=== PATIENT | female | born 1950 | race Caucasian/White ===

== ENCOUNTER 2018-11-13 06:29 | Inpatient (IN) ==
--- NOTE | 2018-10-18 08:14 | History & Physical Report ---
Date of Service October 18, 2018 date of surgery: 11-13-18 Assessment & Plan (1) Osteoarthritis of left knee: Risks and benefits of procedure discussed in detail today, patient would like to proceed with a Left total knee replacement at [facility] as scheduled. Obtain PATs at [facility]. Will place on ASA 81mg po bid x 1 month post op, f/u 2 weeks post op for routine post-operative care and x-ray, sooner if having any problems. will make arrangements for HHPT at the time of discharge. At this point in time, has failed conservative measures and would like to proceed with surgical intervention. History of Present Illness Chief Complaint: left knee pain Primary Care Provider: NO PCP Ms Paul is a 68 year old female who is here for a follow up of left knee pain, presents for pre-op evaluation prior to a left total knee replacement at [facility] on 11/13/18. She presents with pain, crepitus and instability on the left side. Patient is here today for pre-op visit for left TKA on 11/13/18. The symptoms occur intermittently and are gradually getting worse. Currently the patient states that the symptoms are moderate and described as sharp, sometimes stabbing and burning. She rates her current pain as 5/10 and worst is 8/10. The symptoms are aggravated by daily activities and walking. Patient is taking Meloxicam and has also tried Ibuprofen. Patient had visco injections previously as well without relief. Allergies Allergy/AdvReac Type Severity Reaction Status Date / Time tramadol [From Ultram] Allergy Unknown BODY Verified 10/08/18 11:03 SHAKES, CRYING lisinopril AdvReac Unknown Cough Verified 10/08/18 11:03 Home Medications Home Medications Medication Instructions Recorded Confirmed Type acetaminophen [Tylenol Extra 500 mg PO TID PRN 10/08/18 10/08/18 History Strength] amlodipine [Norvasc] 5 mg PO HS 10/08/18 10/08/18 History celecoxib [Celebrex] 200 mg PO QAM 10/08/18 10/08/18 History Past Med/Surg History Medical History Chronic back pain TREATED WITH PAIN CLINIC IN [place]. Hypertension Nausea and vomiting after administration of anesthetic agent Osteoarthritis Vertigo OCCASIONALLY. NO MEDS. Surgical History History of appendectomy History of bilateral tubal ligation History of carpal tunnel release BILATERAL History of cataract surgery BILATERAL History of cholecystectomy History of colonoscopy History of open reduction and internal fixation (ORIF) procedure LEFT ANKLE History of tonsillectomy S/P DI-BSO S/P arthroscopy of shoulder RIGHT Family History Father Family history of diabetes mellitus Sister Family history of diabetes mellitus Brother Family history of diabetes mellitus Social History Preferred Language: Turkish Communication Ability: Effective Lot Attendant Required: No Beliefs That Will Affect Care: None Current Living Situation: Spouse Other Information That Helps Us Care for You: No Feels Safe at Home: Yes Safety Concerns: Feels Safe At This Time Smoking Status: Never smoker Do You Dip or Chew Tobacco: No Second Hand Exposure: No Tobacco Cessation Education Requested by Patient: No Hx Alcohol Use: No Hx Substance Use: No Review of Systems Review of Systems: All systems reviewed & are unremarkable except as noted in HPI & below Constitutional: no fever, no chills and no sweats Respiratory: no cough and no dyspnea Cardiovascular: no chest pain, no dyspnea and no orthopnea Gastrointestinal: no abdominal pain, no nausea and no vomiting Musculoskeletal: as per Subjective / HPI Physical Exam Physical Exam: Ht: 5ft 3in Wt: 95.3kg BP: 140/82 Pulse: 66 Constitutional: WD/WN, vitals as above no acute distress Respiratory: normal respiratory effort, lungs clear to auscultation no respiratory distress, no labored breathing and does not use accessory muscles Cardiovascular: RRR, no murmur, no edema Gastrointestinal (Abdomen): normal bowel sounds, soft, nontender, no hepatosplenomegaly Musculoskeletal: Left Knee Physical Exam: Tamiko ambulates with a limp, there is no erythema, warmth, +1 effusion. there is no ecchymosis or atrophy noted, her greatest tenderness is anterior and medial compartment. mild crepitation with motion, noy's negative, posterior drawer negative. positive mcmurrays medially, negative anterior drawer, knee stable with valgus/varus stress. no extensor lag. pain with active range of motion, AROM 0/5/115, Passive ROM 0/3/115. No pain with active/passive ROM of ankle. Lower Extremity Strength normal. Lower Extremity Neuro-vascular is normal Results & Data Diagnostic Findings Left Knee X-ray performed 08/16/18 shows advanced DJD to the left knee with complete loss of the joint space medial compartment and patellofemoral joints, showing osteophyte formation, subchondral sclerosis. no acute bony pathology noted.
--- NOTE | 2018-10-18 08:44 | PAT Medication Instructions ---
Medication Instructions Date of Service October 18, 2018 Home Medications acetaminophen [Tylenol Extra Strength] 500 mg PO TID PRN amlodipine [Norvasc] 5 mg PO HS celecoxib [Celebrex] 200 mg PO QAM ASK your surgeon for instructions celecoxib [Celebrex] 200 mg PO QAM Take morning of surgery With a small sip of water, OTHERWISE NOTHING TO EAT OR DRINK AFTER MIDNIGHT: acetaminophen [Tylenol Extra Strength] 500 mg PO TID PRN (if needed, may be taken up to four hours before surgery) Take evening before surgery acetaminophen [Tylenol Extra Strength] 500 mg PO TID PRN (if needed) amlodipine [Norvasc] 5 mg PO HS Other Notes If you have any questions please call us at [phone] or [phone] or [phone] or [phone]
--- NOTE | 2018-10-18 11:55 | Anesthesiology Consultation ---
Date of Service October 18, 2018 Assessment & Plan (1) Encounter for pre-operative examination: PCP clearance (Isak Renteria) 10/24: "Labs, EKG and CXR from [facility] reviewed. Patient optimized for left knee replacement surgery. Chart Review Chart Review: Acceptable Risk for Surgery and Patient seen in Pre Admission Te sting Teaching & Discussion Instructed NPO after midnight before surgery, except medications with 15 cc of water. Medication instructions provided according to the PAT guidelines. History Surgery Operation Date: 11/13/18 10:20 Proposed Procedures p Left Total Knee Arthroplasty - Marcus Christopher DO Height/Weight Height: 5 ft 3 in Weight: 101.7 kg Allergies Allergy/AdvReac Type Severity Reaction Status Date / Time tramadol [From Ultra] Allergy Unknown BODY Verified 10/08/18 11:03 SHAKES, CRYING lisinopril AdvReac Unknown Cough Verified 10/08/18 11:03 Medications Home Medications Medication Instructions Recorded Confirmed Last Taken acetaminophen [Tylenol Extra 500 mg PO TID PRN 10/08/18 10/08/18 Unknown Strength] amlodipine [Norvasc] 5 mg PO HS 10/08/18 10/08/18 Unknown celecoxib [Celebrex] 200 mg PO QAM 10/08/18 10/08/18 Unknown Past Medical History Medical History Chronic back pain TREATED WITH PAIN CLINIC IN [place]. Hypertension Nausea and vomiting after administration of anesthetic agent Osteoarthritis Vertigo OCCASIONALLY. NO MEDS. Exercise / Class Metabolic Activity III < 4 Walking/Shop/Light housework (Denies CP or SOB with stairs but limited activity 2/2 knee pain) Past Family History Family History Father Family history of diabetes mellitus Sister Family history of diabetes mellitus Brother Family history of diabetes mellitus Past Surgical History Surgical History History of appendectomy History of bilateral tubal ligation History of carpal tunnel release BILATERAL History of cataract surgery BILATERAL History of cholecystectomy History of colonoscopy History of open reduction and internal fixation (ORIF) procedure LEFT ANKLE History of tonsillectomy S/P DI-BSO S/P arthroscopy of shoulder RIGHT Past Anesthesia History No Hx of Anesthesia Complications (other PONV) and No Family Hx of Anesthesia Complications History of PONV No Hx of Motion Sickness and History of PONV Social History Smoking Status: Never smoker Do You Dip or Chew Tobacco: No Hx Alcohol Use: No Hx Substance Use: No substance use type: does not use Review of Systems Pt denies any recent chest pain, shortness of breath, palpitations, cough, fever or URI. Physical Exam Vital Signs BP: 153/85 (Pt to follow up with PCP) P: 71bpm SPO2: 96% RA T: 98.3 F R: 18 Constitutional + obese ENMT Mouth: + dentures (full upper, partial lower); no loose teeth (but one cavity on lower L) Thyromental Distance: > or= 3.5 Finger Breadths (4) Mallampati Class: II Neck normal visual inspection; neck extension not limited Respiratory normal respiratory effort Auscultation: lungs clear to auscultation bilaterally Cardiovascular Rate/Rhythm: regular rate and regular rhythm Heart Sounds: no murmur Vessels: no carotid bruit Extremities: no edema Testing Laboratory Results 10/18/18 12:10 10/18/18 12:10 PT 10.8 Seconds (9.0-12.0) 10/18/18 12:10 INR 1.1 (0.9-1.1) 10/18/18 12:10 APTT 27.6 Seconds (21.0-31.0) 10/18/18 12:10 Hemoglobin A1c 6.0 % (4.5-5.6) H 10/18/18 12:10 Urine Color Yellow 10/18/18 12:10 Urine Appearance Clear (Clear) 10/18/18 12:10 Urine pH 5.0 (4.5-7.5) 10/18/18 12:10 Ur Specific [place] 1.024 (1.000-1.030) 10/18/18 12:10 Urine Protein Negative (Negative) 10/18/18 12:10 Urine Glucose (UA) Negative (Negative) 10/18/18 12:10 Urine Ketones Negative (Negative) 10/18/18 12:10 Urine Nitrite Negative (Negative) 10/18/18 12:10 Ur Leukocyte Esterase Negative (Negative) 10/18/18 12:10 Blood Type O Positive 10/18/18 12:10 Antibody Screen NEGATIVE 10/18/18 12:10 Electrocardiogram Date: 10/18/18 Findings: + NSR @ (22) Chest X-Ray Date: 10/18/18 Findings: + NAD
--- NOTE | 2018-10-18 13:06 | XRay Report ---
XR chest Pre-admission PA/Lat CLINICAL HISTORY: Preoperative evaluation. COMPARISON STUDY: No previous studies for comparison. FINDINGS: Lung volumes are normal. Lungs are clear. There is no pneumothorax or pleural effusion. Car diac size is normal. Mediastinal contours are normal. There is no evidence for pulmonary edema. Incid ental note is made of cholecystectomy clips. IMPRESSION: No acute cardiopulmonary findings. Electronically signed by: Yuan Yu M.D. 10/18/2018 1:05 PM
[2018-10-18 13:07] LABS: Albumin Level 3.7 gm/dl (3.4-5.0); BUN Creatinine Ratio 24.2 (10-20); Calcium 9.1 mg/dl (8.5-10.1); Creatinine Clr Calc Pharmacy 86.4 ml/min; Est GFR (African American) 102.2; Est GFR (Non-African American) 88.2; Potassium 4.5 mmol/L (3.5-5.1)
[2018-10-18 13:13] LABS: Basophils # (auto) 0.07 K/uL (0-0.2); Basophils % (auto) 0.9 %; Eosinophils % (auto) 2.6 %; Hematocrit (blood only) 38.1 % (37-47); Hemoglobin 12.1 g/dL (12.0-16.0); Immature Granulocytes # (auto) 0.03 K/uL (0.00-0.02); Immature Granulocytes % (auto) 0.4 %; Lymphocytes # (auto) 1.75 K/uL (1.2-3.4); Mean Corpuscular Hgb Conc 31.8 g/dL (32-36); Mean Corpuscular Volume 95.5 fL (80-100); Monocytes # (auto) 0.45 K/uL (0.11-0.59); Monocytes % (auto) 5.9 %; Neutrophils % (auto) 67.2 %; Platelet Count 292 K/uL (130-400); RDW Coefficient of Variation 14.5 % (11.5-14.5); RDW Standard Deviation 50.4 fL (36.4-46.3); Red Blood Count 3.99 M/uL (4.2-5.4)
[2018-10-18 13:25] LABS: INR 1.1 (0.9-1.1); Partial Thromboplastin Time 27.6 Seconds (21.0-31.0); Prothrombin Time 10.8 Seconds (9.0-12.0)
[2018-10-18 13:31] LABS: Estimated Average Glucose 126 mg/dl
[2018-10-18 13:37] LABS: Appearance Urine Clear (Clear); Bilirubin Urine Negative (Negative); Blood Urine Negative (Negative); Color Urine Yellow; Glucose Urine UA Negative (Negative); Ketones Urine Negative (Negative); Leukocyte Esterase Urine Negative (Negative); Nitrite Urine Negative (Negative); Protein Urine Negative (Negative); Specific Gravity Urine 1.024 (1.000-1.030); Urobilinogen Urine Negative (Negative)
[~2018-11-13 06:29] MED LIST: ACETAMINOPHEN 500 MG TAB PO SCH; CEFAZOLIN 2000MG 2,000 MG/15 ML SYR IV SCH; CeleBREX 200 MG CAP PO SCH; FAMOTIDINE 20 MG TAB PO SCH; GABAPENTIN 300 MG CAP PO SCH; LR 500ML BOLUS, THEN 15ML/HR IV SCH; METOCLOPRAMIDE HCL 10 MG TABLET PO SCH; ROPIVACAINE 0.5% HCL/PF 150 MG, BUPIVACAINE 0.5% MPF 30 ML, EPINEPHrine 30MG/30ML (OR U... INSTIL SCH; TRANEXAMIC ACID 1,000 MG **IV Pre-op IV SCH; dexAMETHasone 4 MG TAB PO SCH
[2018-11-13] MEDS ORDERED: TRANEXAMIC ACID 1,000 MG **IV Intra-op IV SCH (06:30)
[2018-11-13] MEDS ORDERED: ROPIVACAINE 0.5% 5 MG/ML 30 ML VIAL ONE (06:41)
[2018-11-13] MEDS ORDERED: BUPIVACAINE 0.5 % 5 MG/1 ML PF 10ML VIAL ONE (06:41)
[2018-11-13] MEDS ORDERED: EPINEPHrine INJ 1 MG/ML AMP ONE (06:42)
[2018-11-13] MEDS ORDERED: PROPOFOL IV EMULSION 10 MG/ML 20 ML VIAL IV ONE (07:38)
[2018-11-13] MEDS ORDERED: LIDOCAINE HCL 2% 2 ML VIAL/AMP(20MG/ML) INFIL ONE (07:38)
[2018-11-13] MEDS ORDERED: ONDANSETRON INJ 2 MG/ML 2 ML VIAL ONE (07:38)
[2018-11-13] MEDS ORDERED: GLYCOPYRROLATE 0.2 MG/ML VIAL ONE (07:38)
[2018-11-13] MEDS ORDERED: DEXAMETHASONE SOD INJ 4 MG/ML VIAL ONE (07:38)
[2018-11-13] MEDS ORDERED: MIDAZOLAM HCL 1 MG/ML 2ML VIAL ONE (07:39)
[2018-11-13] MEDS ORDERED: KETAMINE HCL INJ 50 MG/ML 10 ML VIAL ONE (07:39)
[2018-11-13] MEDS ORDERED: LABETALOL HCL IV 5 MG/ML 20ML IV ONE (07:44)
--- NOTE | 2018-11-13 08:30 | History & Physical Bridge Note ---
Date of Service November 13, 2018 History & Physical Bridge Note I have examined the patient, reviewed the History & Physical and in the interval since the performance of the History & Physical I have noted the following changes of clinical significance: no changes noted
[2018-11-13] MEDS ORDERED: BACITRACIN INJ 50,000 UNIT VIAL ONE (09:08)
[2018-11-13] MEDS ORDERED: ORTHO JOINT ANESTHETIC ONE (09:08)
[2018-11-13] MEDS ORDERED: fentaNYL citrate 100 MCG/2 ML VIAL IV PRN (09:14)
[2018-11-13] MEDS ORDERED: ONDANSETRON INJ 2 MG/ML 2 ML VIAL IV PRN ×2 (09:14→12:18)
[2018-11-13] MEDS ORDERED: LABETALOL HCL IV 5 MG/ML 20ML IV PRN (09:14)
[2018-11-13] MEDS ORDERED: PHENYLEPHRINE 100MCG/ML 5ML SYR IV PRN (09:14)
[2018-11-13] MEDS ORDERED: ATROPINE SULFATE 0.1 MG/ML 10ML SYR IV PRN (09:14)
[2018-11-13] MEDS ORDERED: ePHEDrine sulfate 50 MG/ML AMP IV PRN (09:14)
--- NOTE | 2018-11-13 10:29 | Operative Report ---
Post Operative Report Pre & Post Diagnosis Operation Date: 11/13/18 09:40 Pre-Op Diagnosis: Left knee osteoarthritis Post-Op Diagnosis: Left knee osteoarthritis Procedure Operation Date: 11/13/18 09:40 Actual Procedures p Left Total Knee Arthroplasty utilizing Gonzalez & Nephew journey to non-block total knee arthroplasty size 5 femur 4 tibia 9 polyethylene 32 oval patella- Tho lacho Christopher DO Surgeon Marcus Christopher DO Corner Trimmer Operator Vinicius SANCHEZ Estimated Blood Loss 5 Findings Consistent with Post-Op Diagnosis Patient presents with severe end-stage chronic hormonal degenerative joint disease left knee bone to bone changes eburnated bone bone loss of the medial compartment with complete eburnated bra bone large marginal osteophyte subchondral cystic changes moderate to large effusion Specimens Bone and Drains Medium bore Hemovac Complications none Disposition Accompanied Patient To Recovery: No Disposition: Recovery Room Indications Patient presents with severe end-stage tricompartmental degenerative joint disease failing attempts at conservative management physical therapy and inflammatory relative rest activity modification corticosteroid injections Visco supplementation she presents for left total knee arthroplasty Description of Procedure After proper prepping and draping of the left lower extremity anterior midline incision was made over the region of the extensor extensor mechanism after meticulous hemostasis was obtained and maintained in subcutaneous tissues a medial parapatellar incision was made The patella was subluxed lateralward the medial lateral gutter were cleaned from any hypertrophic synovitis and scar tissue of the distal femoral block was placed and the distal femoral osteotomy cut was made subsequently the chamfers anterior and posterior osteotomy cuts were made utilizing the 4-in-1 block the tibia was subsequently subluxed anteriorward medial and ateral meniscal remnants were excised in their entirety remnants of the anterior and posterior cruciate ligaments were excised in their entirety excellent exposure of the proximal tibia was obtained the tibial osteotomy guide was placed on the proximal tibial osteotomy cut was made once again the knee was irrigated with copious amounts of sterile saline solution the patella was subsequently everted lateralward thickened scar tissue around the patella was removed the patella was subsequently cut utilizing a freehand technique and was drilled prepared for final preparation and placement of patella socially flexion-extension gaps were checked and the equal and symmetric trials were placed to the appropriate femoral and tibial trials with poly-spacer being placed for equal flexion and extension gaps and full range of motion inclu ding extension to 0 and flexion to 140 the trial components after having been taken to recovery range of motion was subsequently removed meticulous hemostasis was obtained and maintained subsequently a knee block injection of joint cocktail including ropivacaine 0.5% 150 mg. Bupivacaine 0.5% epinephrine 1- 200,030 mL's toradol 30 mg dexamethasone 4 mg ketamine 10 mg clonidine 100 micrograms normal saline solution 30 mg was infiltrated into the soft tissues of the posterior knee medial lateral gutters and periosteal synovium special attention was paid to protect neurovascular structures at all times subsequently trial components having been removed the knee was irrigated with sterile saline solution. debris was removed the proximal tibia was subsequently prepared and was made ready for the placement of the tibial component tibial component was also cemented and tamped into position the femoral component was subsequently placed and cemented in the position the patellar component was subsequently cemented in position because hemostasis once again obtained and maintained wound having been thoroughly irrigated with debridement and debridement lavage was performed as well as a medial parapatellar incision closed with #1 Vicryl in interrupted fashion subcutaneous was closed with #2 Vicryl skin was closed with skin clips. PA-C was necessary for prepping and drapping as well as wound closure of deep fascia Sub cutaneous tissue and skin and was necessary for the case. A sterile compressive dressing was placed patient was taken to recovery in stable condition of report dictated by Ashwin I attest to the content of the Intraoperative Record and any orders documented therein. Any exceptions are noted below. I attest to the content of the Intraoperative Record and any orders documented therein. Any exceptions are noted below.
--- NOTE | 2018-11-13 11:41 | XRay Report ---
TWO VIEWS LEFT KNEE CLINICAL HISTORY: Postoperative examination. FINDINGS: AP and crosstable lateral portable views of the left knee are obtained. A left knee arthrop lasty is in near anatomic alignment. There has been undersurface remodeling of the patella. No acute fracture is seen. There are expected postoperative changes around the knee including a surgical drain , soft tissue edema, and subcutaneous gas. Soft tissue calcifications are seen medial to the proximal tibia. IMPRESSION: 1. Expected postoperative changes status post left knee arthroplasty. No acute fracture is seen. 2. Indeterminate soft tissue calcifications are seen medial to the proximal tibia. Electronically signed by: Demetrius Hudson M.D. 11/13/2018 11:39 AM
--- NOTE | 2018-11-13 11:59 | Anesthesiology Progress Note ---
Date of Service November 13, 2018 Anesthesia Post Procedure Vital Signs Vital Signs: Temp Pulse Pulse Resp BP BP Pulse Ox 11/13/18 11:50 73 18 132/69 92 11/13/18 11:40 67 20 119/62 94 11/13/18 11:30 75 21 126/60 94 11/13/18 11:20 82 16 113/63 94 11/13/18 11:11 37.2 C 82 18 119/57 L 95 11/13/18 07:29 36.6 C 74 20 158/86 H 98 Pain Intensity Left Knee: Pain Intensity: 0 Transfer of Care Handoff Completed per policy Notes Mental Status: alert / awake / arousable and participated in evaluation Patient Amnestic to Procedure: Yes Nausea / Vomiting: adequately controlled Pain: adequately controlled Airway Patency, RR, SpO2: stable & adequate BP & HR: stable & adequate Hydration State: stable & adequate Neuraxial Anesthesia: was administered and sensory block is resolving Anesthetic Complications: no major complications apparent and Pt Satisfied with anesthetic care
[2018-11-13] MEDS ORDERED: BISACODYL 10 MG SUPP PR PRN (12:18)
[2018-11-13] MEDS ORDERED: HYDROmorphone INJ 1 MG/ML SYRINGE IV PRN (12:18)
[2018-11-13] MEDS ORDERED: MAGNESIUM HYDROXIDE SUSP 30 ML UDC PO PRN (12:18)
[2018-11-13] MEDS ORDERED: ALUMINUM/MAGNESIUM SUSP 30 ML UDC PO PRN (12:18)
[2018-11-13] MEDS ORDERED: NALOXONE HCL 0.4 MG/1 ML VIAL/CARP IV PRN (12:18)
[2018-11-13] MEDS ORDERED: METOCLOPRAMIDE HCL INJ 5 MG/ML 2 ML VIAL IV PRN (12:18)
[2018-11-13] MEDS ORDERED: SODIUM CHLORIDE 0.9% 1000ML 1,000 ML IV SCH (13:15)
[2018-11-13] MEDS: ACETAMINOPHEN 500 MG TAB PO SCH ×2 (14:06→20:39)
[2018-11-13] MEDS: KETOROLAC TROMETHAMINE 15 MG/ML VIAL IV SCH ×2 (14:06→20:40)
[2018-11-13] MEDS: CEFAZOLIN 2000MG 2,000 MG/15 ML SYR IV SCH (18:11)
[2018-11-13] MEDS: DOCUSATE SODIUM 100 MG CAP PO SCH (20:39)
[2018-11-13] MEDS: ASPIRIN 81 MG ECTAB PO SCH (20:39)
[2018-11-13] MEDS: SENNA 8.6 MG TAB PO SCH (20:39)
[2018-11-13] MEDS: AMLODIPINE BESYLATE 5 MG TAB PO SCH (20:39)
[2018-11-14] MEDS: CEFAZOLIN 2000MG 2,000 MG/15 ML SYR IV SCH (02:28)
[2018-11-14] MEDS: KETOROLAC TROMETHAMINE 15 MG/ML VIAL IV SCH ×2 (02:29→07:44)
[2018-11-14] MEDS: ACETAMINOPHEN 500 MG TAB PO SCH ×3 (05:57→21:08)
--- NOTE | 2018-11-14 07:17 | Orthopedic Progress Note ---
Date of Service November 14, 2018 Assessment & Plan (1) Status post total left knee replacement: POD #1 s/p Left TKA pt/ot dvt proph with KAE/SCD/ASA plan for d/c home with HHPT when stable labs pending Subjective POD #1 s/p Left TKA Review of Systems Constitutional: no fever, no chills and no sweats Respiratory: no cough and no dyspnea Cardiovascular: no chest pain and no dyspnea Gastrointestinal: no abdominal pain, no nausea and no vomiting Physical Exam Physical Exam: Vital Signs Temp Pulse Pulse Resp BP BP Pulse Ox 11/14/18 07:08 36.6 C 73 16 158/83 H 97 11/14/18 02:53 36.5 C 65 16 151/82 H 93 11/13/18 23:41 36.9 C 68 16 122/77 95 11/13/18 20:31 36.7 C 67 17 134/78 97 11/13/18 15:05 36.6 C 65 18 126/75 94 11/13/18 14:04 36.7 C 76 15 132/75 94 11/13/18 13:29 36.7 C 78 18 133/74 11/13/18 12:34 77 16 125/79 98 11/13/18 12:05 36.7 C 72 15 131/76 96 11/13/18 11:50 73 18 132/69 92 11/13/18 11:40 67 20 119/62 94 11/13/18 11:30 75 21 126/60 94 11/13/18 11:20 82 16 113/63 94 11/13/18 11:11 37.2 C 82 18 119/57 L 95 11/13/18 07:29 36.6 C 74 20 158/86 H 98 Intake and Output 11/13/18 11/14/18 11/14/18 22:59 06:59 14:59 Intake Total 220 / 2040 Output Total 625 / 1525 125 / 1525 Balance -405 / 515 -125 / 515 Intake: Oral 220 / 420 Output: Urine 450 / 1150 Drain Output 175 / 370 125 / 370 Left Knee Hemo vac 175 / 370 125 / 370 Other: # Unmeasured Voi ds 1 Constitutional: WD/WN, vitals as above no acute distress Musculoskeletal: left leg: NVDI, calf SNT, negative susannah sign. DP palpable, able to wiggle toes/ankle movement without difficulty. dressing clean dry and intact. Vital Signs Temp 36.6 C 11/14/18 07:08 Pulse 73 11/14/18 07:08 Resp 16 11/14/18 07:08 BP 158/83 H 11/14/18 07:08 Pulse Ox 97 11/14/18 07:08 Intake & Output 11/13/18 11/14/18 11/14/18 18:59 06:59 18:59 Intake Total 1820 / 2040 220 / 2040 Output Total 1225 / 1525 300 / 1525 Balance 595 / 515 -80 / 515 Weight 101.1 kg Intake: IV 520 / 520 Lr 1,000 ml @ 15 mls/hr IV . 300 / 300 Q24H BEHZAD Rx#:[id number] Cyklokapron 1, 000 mg In Sodium 220 / 220 Chloride 100 m l @ 660 mls/hr IV 0630 BEHZAD Rx#:[id number] IV Perioperative 1100 / 1100 Oral 200 / 420 220 / 420 Output: Urine 1150 / 1150 Estimated Blood Loss 5 / 5 Drain Output 70 / 370 300 / 370 Left Knee Hemo vac 70 / 370 300 / 370 Other: # Unmeasured Voi ds 1 Results & Data Vital Signs (Past 12 Hours) Vital Signs Temp Pulse Resp BP Pulse Ox 11/14/18 02:53 36.5 C 65 16 151/82 H 93 11/13/18 23:41 36.9 C 68 16 122/77 95 11/13/18 20:31 36.7 C 67 17 134/78 97 Diagnostic Findings TWO VIEWS LEFT KNEE CLINICAL HISTORY: Postoperative examination. FINDINGS: AP and crosstable lateral portable views of the left knee are obtained. A left knee arthroplasty is in near anatomic alignment. There has been undersurface remodeling of the patella. No acute fracture is seen. There are expected postoperative changes around the knee including a surgical drain, soft tissue edema, and subcutaneous gas. Soft tissue calcifications are seen medial to the proximal tibia. IMPRESSION: 1. Expected postoperative changes status post left knee arthroplasty. No acute fracture is seen. 2. Indeterminate soft tissue calcifications are seen medial to the proximal tibia.
[2018-11-14] MEDS: OXYCODONE HCL IR 5 MG TAB (IMMEDIATE RELEASE) PO PRN ×3 (07:43→15:42)
[2018-11-14] MEDS: MULTIVITAMIN TAB PO SCH (07:45)
[2018-11-14] MEDS: DOCUSATE SODIUM 100 MG CAP PO SCH ×2 (07:45→20:54)
[2018-11-14] MEDS: ASPIRIN 81 MG ECTAB PO SCH ×2 (07:45→20:53)
[2018-11-14 08:03] LABS: Hemoglobin 9.7 g/dL (12.0-16.0); Mean Corpuscular Hgb Conc 31.3 g/dL (32-36); Mean Corpuscular Volume 94.8 fL (80-100); Platelet Count 293 K/uL (130-400); RDW Coefficient of Variation 14.1 % (11.5-14.5); RDW Standard Deviation 48.7 fL (36.4-46.3); Red Blood Count 3.27 M/uL (4.2-5.4); White Blood Count 12.97 K/uL (4.8-10.8)
[2018-11-14 08:34] LABS: BUN Creatinine Ratio 25.1 (10-20); Calcium 8.9 mg/dl (8.5-10.1); Creatinine Clr Calc Pharmacy 68.3 ml/min; Est GFR (African American) 78.2; Est GFR (Non-African American) 67.5; Potassium 4.3 mmol/L (3.5-5.1)
--- NOTE | 2018-11-14 09:31 | Anesthesiology Progress Note ---
Date of Service November 14, 2018 Anesthesia Post Procedure Vital Signs Vital Signs: Temp Pulse Pulse Resp BP Pulse Ox 11/14/18 07:08 36.6 C 73 16 158/83 H 97 11/14/18 02:53 36.5 C 65 16 151/82 H 93 11/13/18 23:41 36.9 C 68 16 122/77 95 11/13/18 20:31 36.7 C 67 17 134/78 97 11/13/18 15:05 36.6 C 65 18 126/75 94 11/13/18 14:04 36.7 C 76 15 132/75 94 11/13/18 13:29 36.7 C 78 18 133/74 11/13/18 12:34 77 16 125/79 98 11/13/18 12:05 36.7 C 72 15 131/76 96 11/13/18 11:50 73 18 132/69 92 11/13/18 11:40 67 20 119/62 94 11/13/18 11:30 75 21 126/60 94 11/13/18 11:20 82 16 113/63 94 11/13/18 11:11 37.2 C 82 18 119/57 L 95 Pain Intensity Left Knee: Pain Intensity: 0 Notes Mental Status: alert / awake / arousable and participated in evaluation Patient Amnestic to Procedure: Yes Nausea / Vomiting: adequately controlled Pain: adequately controlled Airway Patency, RR, SpO2: stable & adequate BP & HR: stable & adequate Hydration State: stable & adequate Neuraxial Anesthesia: was administered and sensory block resolved Anesthetic Complications: no major complications apparent and Pt Satisfied with anesthetic care
[2018-11-14] MEDS: AMLODIPINE BESYLATE 5 MG TAB PO SCH (20:53)
[2018-11-14] MEDS: CeleBREX 200 MG CAP PO SCH (20:53)
[2018-11-14] MEDS: SENNA 8.6 MG TAB PO SCH (20:54)
[2018-11-15] MEDS: ACETAMINOPHEN 500 MG TAB PO SCH (06:13)
[2018-11-15] MEDS: OXYCODONE HCL IR 5 MG TAB (IMMEDIATE RELEASE) PO PRN (07:34)
[2018-11-15] MEDS: DOCUSATE SODIUM 100 MG CAP PO SCH (07:35)
[2018-11-15] MEDS: ASPIRIN 81 MG ECTAB PO SCH (07:35)
[2018-11-15] MEDS: CeleBREX 200 MG CAP PO SCH (07:35)
[2018-11-15] MEDS: MULTIVITAMIN TAB PO SCH (07:35)
--- NOTE | 2018-11-15 08:52 | Orthopedic Progress Note ---
Date of Service November 15, 2018 Assessment & Plan (1) Status post total left knee replacement: POD #1 s/p Left TKA pt/ot dvt proph with KAE/SCD/ASA plan for d/c home with HHPT when stable Recheck of her blood pressure proved to be 143/80. No further adjustments needed for her medications for her blood pressure. I discussed with her that she should follow-up with her primary care physician in a week to recheck her blood pressure for any adjustments that might need to be done with her amlodipine. We will plan for discharge to home today. Subjective Postop day 2 status post left total knee arthroplasty Patient is currently sitting up in bed eating her breakfast. Awake alert and oriented. No complaints this time. Pain is controlled. He states that she was having pain last night and let it get too far along. He had some Dilaudid which caused her to have vivid dreams and visions etc. and states that she does not want to have Dilaudid ever again. Shortness of breath, chest pain, lightheadedness. Blood pressure was taken and was noted to be 183/97 this morning after she had gotten up to the bathroom and was moving about. Physical Exam Physical Exam: Miguel dressing is clean, dry, intact. Functioning. Calves are soft nontender. Neurovascular intact. Toes are mobile. Results & Data Vital Signs (Past 12 Hours) Vital Signs Temp Pulse Resp BP Pulse Ox 11/15/18 08:00 36.5 C 73 17 183/97 H 96 11/14/18 23:36 36.8 C 68 16 155/80 H 99 11/14/18 20:55 36.5 C 65 16 155/82 H 98
--- NOTE | 2018-11-15 11:09 | Discharge Summary ---
Date of Service date of discharge: November 15, 2018 date of admission: 11/13/18 Admission HPI Per Admitting Provider Ms Paul is a 68 year old female who is here for a follow up of left knee pain, presents for pre-op evaluation prior to a left total knee replacement at [facility] on 11/13/18. She presents with pain, crepitus and instability on the left side. Patient is here today for pre-op visit for left TKA on 11/13/18. The symptoms occur intermittently and are gradually getting worse. Currently the patient states that the symptoms are moderate and described as sharp, sometimes stabbing and burning. She rates her current pain as 5/10 and worst is 8/10. The symptoms are aggravated by daily activities and walking. Patient is taking Meloxicam and has also tried Ibuprofen. Patient had visco injections previously as well without relief. Principal Diagnosis left knee osteoarthritis Discharge Exam Vital Signs Temp Pulse Resp BP BP Pulse Ox 11/15/18 09:40 36.5 C 73 17 183/97 H 143/80 H 96 11/15/18 08:54 143/80 H 11/15/18 08:00 36.5 C 73 17 183/97 H 96 11/14/18 23:36 36.8 C 68 16 155/80 H 99 11/14/18 20:55 36.5 C 65 16 155/82 H 98 11/14/18 19:07 36.5 C 62 16 137/81 94 11/14/18 15:36 36.4 C L 68 16 149/84 H 97 11/14/18 12:00 36.2 C L 62 16 136/85 98 Intake and Output 11/14/18 11/15/18 11/15/18 22:59 06:59 14:59 Output Total 125 / 235 Balance -125 / 225 - Output: Drain Output 125 / 235 Left Knee Hemovac 125 / 235 Other: # Unmeasured Voids 1 1 Weight 101.1 kg Patient Weight 11/16/18 06:59 Weight 101.1 kg Constitutional WD/WN, vitals as above no acute distress Musculoskeletal left knee: NVDI, calf SNT, negative susannah sign. DP palpable, able to wiggle toes/ankle movement without difficulty. ARLET dressing clean dry and intact. expected post-operative bruising noted. Discharge Data Allergies Allergy/AdvReac Type Severity Reaction Status Date / Time tramadol [From Ultram] Allergy Unknown BODY Verified 11/13/18 07:34 SHAKES, CRYING lisinopril AdvReac Unknown Cough Verified 11/13/18 07:34 Consultations 11/13/18 12:18 Consult Case Management - Discharge Planning Routine Procedures Performed Operation Date: 11/13/18 09:40 Actual Procedures p Left Total Knee Arthroplasty(Left) - Marcus Christopher DO Ordered Studies 11/13/18 05:00 US - OR guided needle placemen Routine Hospital Course (1) Status post total left knee replacement: POD #2 s/p Left TKA pt/ot dvt proph with KAE/SCD/ASA plan for d/c home with HHPT when stable Recheck of her blood pressure proved to be 143/80. No further adjustments needed for her medications for her blood pressure. I discussed with her that she should follow-up with her primary care physician in a week to recheck her blood pressure for any adjustments that might need to be done with her amlodipine. We will plan for discharge to home today. Total Time Total Time Spent Total Time Spent (In Minutes): 20 Total Time Includes: Examination of the Patient, Discharge Planning and Medicati on Reconciliation Discharge Plan Discharge Items Patient Disposition: Home - Home Health Services Reason For Visit: LEFT KNEE OSTEOARTHRITIS Discharge Diagnosis: left total knee replacement Discharge Goals: Decrease discomfort, Improve function and Increase independence Activity: Per 'Additional Instructions' section Lifting: Wait until after follow-up appointment Driving/Machine Use Comment: no driving until cleared by your surgeon Weightbearing Comment: WBAT with walker Call non-emergency contact if: your temperature is above 101, your wound has increased redness, your wound has increased drainage and your wound pain has increased Follow-up/Referrals: PCP,NO [Physician] - Addtl Provider Instructions: ACTIVITY RECOMMENDATIONS: SELF CARE INSTRUCTIONS AFTER TOTAL KNEE REPLACEMENT A. You may need to continue a physical therapy program after discharge from the hospital. There are several options available to you. Your doctor will assist you in selecting the best one for you. 1. An out-patient facility 2 to 3 times a week for therapy or home therapy. 2. Continue working on all exercises taught to you in the hospital. Your goals should be to increase bending of your knee to 90 degrees and beyond and to fully straighten your knee. B. You may progress at your own pace from walking with a walker or crutches to a cane; then to no assistive devices. C. Make walking a part of your daily routine. Be up as much as comfortable with rest periods throughout the day. Rest with leg elevation is very important. Use the ice wrap frequently for the first 3-4 weeks. D. There are no restrictions on activities. You may ride in a car, shop, participate in hospital social worker and all social activities. E. Wear the long elastic stockings (KAE hose) 20 hours a day for 2 weeks after surgery. They can be removed several times a day for laundering and for a bath. F. You may shower, no tub baths until cleared by your doctor. SPECIAL CARE INSTRUCTIONS: VERY IMPORTANT TO READ AND REVIEW A. There are a few signs you need to watch for after you are home. Call [facility] if you notice any of the followin. Increased severe knee pain. Some pain is expected especially when you exercise. 2. Increased swelling in your leg or knee; pain or swelling of the calf muscle in either lower leg. 3. Any fluid drainage from the incision. 4. Shortness of breath or chest pain. B. Please call [facility] at if you have any concerns or questions about your operation or recovery. The doctor or his nurse will return your call promptly. C. You must take antibiotics before dental work, bladder, bowel or other surgery. Your doctor will provide you with a permanent care to carry describing this precaution. IMPORTANT: * REMEMBER TO TAKE ASPIRIN, 81 MG, TWICE DAILY FOR 4 WEEKS UNLESS OTHERWISE DIRECTED. THIS IS YOUR BLOOD THINNER. * HIGH RISK PATIENTS MAY BE PRESCRIBED A STRONGER BLOOD THINNER. THIS WILL BE PROVIDED AT DISCHARGE. * CALL IF INCREASED PAIN, REDNESS, DRAINAGE OR FEVER GREATER THAT 101. * WEAR KAE HOSE 20 HOURS PER DAY FOR 2 WEEKS. * ARLET Dressing- This is a large suction dressing covering your incision. This will help pull any excess drainage from the wound and allow your incision to heal properly. You may shower with this if you can keep the unit outside of the shower. If any bleeding or leakage is noted please call your doctor's office. This will remain on your incision for 7 days and then should be removed. This can be done yourself or by the home nursing staff if applicable. The entire unit is disposable once removed. Once removed, keep incision clean and dry. If redness or drainage is noted, please call your surgeon. after ARLET is removed, follow these instructions: DERMABOND Prineo- This is a mesh tape dressing that is covered with glue. It should remain in place until the incision is properly healed, usually 10-14 days. This dressing is designed to naturally slough off. You may trim the excess mesh tape as it peels off. Incision may be briefly wet in a shower. Dry immediately by blotting with a clean, dry towel. Do not bath or swim until instructed by your doctor. Do not scratch, rub, or pick at the dressing. Do not apply any topical ointments or lotions until dressing is completely removed and/or instructed by your doctor. There may be a small piece of suture material at one end of your incision. Do not pull or trim this. If it is bothersome or catching on clothing, you may cover it with a band-aid. IF INCISION IS LEAKING THROUGH DRESSING, CALL THE OFFICE . FOLLOW UP VISIT: If appointment is not already scheduled: Please call [facility] to make a follow-up appointment for 2 weeks after your surgery at . Prescriptions: New aspirin [Ecotrin Low Strength] 81 mg Tablet,Delayed Release (Dr/Ec) 81 mg PO BID 30 Days Qty: 60 RF: 0 acetaminophen [Tylenol Extra Strength] 500 mg Tablet 1,000 mg PO Q8 14 Days Qty: 84 RF: 0 oxycodone 5 mg Tablet 5 - 10 mg PO Q6H PRN (Reason: pain) Qty: 30 RF: 0 sennosides [Senokot] 8.6 mg Tablet 17.2 mg PO HS Qty: 30 RF: 0 Continued celecoxib [Celebrex] 200 mg Capsule 200 mg PO QAM RF: 0 amlodipine [Norvasc] 5 mg Tablet 5 mg PO HS RF: 0 Discontinued acetaminophen [Tylenol Extra Strength] 500 mg Tablet 500 mg PO TID PRN (Reason: Pain) RF: 0 Stand-Alone Forms: [id number], Opioid Pain Management Krames/Other Patient Handouts: A1C, Surgery Prevent DVT After, Prediabetes, Diabetes Healthy Meals, Diabetes Exercise Benefits Discharge Orders: Discharge Order (Routine); Ordered 11/15/18 Ordered By: Solomon Orourke Admission Data Admit Date/Time: 11/13/18 11:19 Attending Provider: Marcus Christopher Admit Provider: Marcus Christopher Primary Care Provider: Raya Sanchez Service: Surgical Services Other Interventions: Discharge Summary Assessment (RN) Last Done: 11/15/18 09:40
== END 2018-11-15 11:24 | disposition home health service (06) | DRG 470 ==
LOC: ASU 06:29 → 3E 11:19
DX: M17.12 Unilateral primary osteoarthritis, left knee